=== PATIENT | male | born 1980 | race American Indian/Alaskan Native ===

== ENCOUNTER 2017-10-01 09:42 | Emergency (ER) | payer SELFPAY ==
[2017-10-01 09:54] VITALS: BP 122/78
== END 2017-10-01 10:15 | disposition left against medical advice (07) ==
LOC: ED 09:42
DX: R11.2 Nausea with vomiting, unspecified (principal); R10.9 Unspecified abdominal pain; Z53.21 Procedure and treatment not carried out due to patient leaving prior to being seen by health care provider